=== PATIENT | male | born 1980 | race Caucasian/White ===

== ENCOUNTER 2020-01-22 17:55 | Emergency (ER) | payer MEDICAID ==
[~2020-01-22] VITALS: Ht 170.2 cm; Wt 87.3 kg
[~2020-01-22 17:55] MED LIST: NO HOME MEDS
[2020-01-22 18:26] VITALS: BP 158/96
[2020-01-22] MEDS ORDERED: PENI500T2 PO (19:48)
[2020-01-22] MEDS ORDERED: HYDR-3965 PO (19:48)
== END 2020-01-22 20:07 | disposition home or self-care (01) ==
LOC: ER 17:55
DX: K08.89 Other specified disorders of teeth and supporting structures (principal); F17.200 Nicotine dependence, unspecified, uncomplicated; Z79.2 Long term (current) use of antibiotics; Z79.899 Other long term (current) drug therapy
CPT/HCPCS: 99283